=== PATIENT | male | born 1965 | race Two or more races ===

== ENCOUNTER 2018-07-09 11:45 | Inpatient (IN) | payer OTHER ==
[~2018-07-09] VITALS: Ht 172.7 cm; Wt 105.7 kg
[2018-07-09] MEDS ORDERED: LOSARTAN POTASS50 MG PO (14:20)
[2018-07-09] MEDS ORDERED: LIPITOR20 MG PO (14:20)
[2018-07-09] MEDS ORDERED: DIOVAN160 M1 PO (14:20)
[2018-07-09] MEDS ORDERED: PRILOSEC10 MG PO (14:21)
[2018-07-09] MEDS ORDERED: COGENTIN2 MG/2 ML IM (14:21)
[2018-07-09] MEDS ORDERED: BENADRYL ALLERG25 MG PO (14:22)
[2018-07-09] MEDS ORDERED: DIVALPROEX SOD500 M1 PO (14:22)
[2018-07-09] MEDS ORDERED: RISPERDAL3 MG PO (14:22)
[2018-07-09] MEDS ORDERED: XANAX1 MG PO (14:23)
[2018-07-17] MEDS ORDERED: XARELTO10 MG PO (09:12)
[2018-07-17] MEDS ORDERED: BACTRIM DS TAB1 EACH PO (09:12)
[2018-07-17] MEDS ORDERED: INTEGRA PLUS C1 EACH PO (09:12)
[2018-07-17] MEDS ORDERED: OXYC1TAB9 PO (09:12)
== END 2018-07-17 18:19 | DRG 470 ==
LOC: SURH 07-13 06:15 → O/R 07-13 06:15 → SURH 07-13 11:45
PROVIDERS: ADMIT Orthopaedic Surgery Sports Medicine
PROC: 0SRC0J9 Replacement of Right Knee Joint with Synthetic Substitute, Cemented, Open Approach (ICD-10-PCS; principal; 2018-07-13 12:00)
PROC: 30233N1 Transfusion of Nonautologous Red Blood Cells into Peripheral Vein, Percutaneous Approach (ICD-10-PCS; 2018-07-16)
DX: M17.11 Unilateral primary osteoarthritis, right knee (principal); I10 Essential (primary) hypertension; E78.5 Hyperlipidemia, unspecified; F41.9 Anxiety disorder, unspecified; K21.9 Gastro-esophageal reflux disease without esophagitis; E66.01 Morbid (severe) obesity due to excess calories; D64.89 Other specified anemias

== ENCOUNTER 2022-09-16 15:53 | Inpatient (IN) | payer OTHER ==
[~2022-09-16] VITALS: Ht 172.7 cm; Wt 95.3 kg
[~2022-09-16 15:53] MED LIST: BACTRIM DS TAB1 EACH PO; BENADRYL ALLERG25 MG PO; COGENTIN2 MG/2 ML IM; DIOVAN160 M1 PO; DIVALPROEX SOD500 M1 PO; INTEGRA PLUS C1 EACH PO; LIPITOR20 MG PO; LOSARTAN POTASS50 MG PO; OXYC1TAB9 PO; PRILOSEC10 MG PO; RISPERDAL3 MG PO; XANAX1 MG PO; XARELTO10 MG PO
[2022-09-17] MEDS ORDERED: LOSARTAN-HCTZ1 EAC1 PO (11:28)
[2022-09-17] MEDS ORDERED: DEPAKOT PO (11:29)
[2022-09-17] MEDS ORDERED: DEPAKO PO (11:29)
[2022-09-17] MEDS ORDERED: BENADR PO (11:30)
[2022-09-17] MEDS ORDERED: PRILOSEC OTC20 MG PO (11:30)
[2022-09-17] MEDS ORDERED: XANAX1 MG PO (11:30)
[2022-09-23] MEDS ORDERED: QUETIAPINE FUM100 MG (08:15)
[2022-09-23] MEDS ORDERED: RESTORIL30 MG (08:15)
[2022-09-23] MEDS ORDERED: LEVOTHYROXINE50 MCG (08:15)
[2022-09-23] MEDS ORDERED: DIVALPROEX SOD500 MG (08:15)
[2022-09-23] MEDS ORDERED: HYDROCHLOROTHIA25 MG (08:16)
[2022-09-23] MEDS ORDERED: LOSARTAN POTASS50 MG (08:16)
[2022-09-23] MEDS ORDERED: PANTOPRAZOLE SO40 MG (08:16)
[2022-09-26] MEDS ORDERED: BACTRIM DS TAB1 EACH PO (08:14)
[2022-09-26] MEDS ORDERED: INTEGRA PLUS C1 EACH PO (08:14)
[2022-09-26] MEDS ORDERED: OXYC1TAB9 PO (08:14)
[2022-09-26] MEDS ORDERED: XARELTO10 MG PO (08:14)
== END 2022-09-26 12:45 | DRG 470 ==
LOC: SURH 09-23 05:28 → O/R 09-23 05:28 → SURG 09-23 07:15 → SURH 09-23 13:29
PROVIDERS: ADMIT Orthopaedic Surgery Sports Medicine; ATTEND Orthopaedic Surgery Sports Medicine
PROC: 3E0F7SF Introduction of Other Gas into Respiratory Tract, Via Natural or Artificial Opening (ICD-10-PCS; 2022-09-23)
PROC: 0SRD0J9 Replacement of Left Knee Joint with Synthetic Substitute, Cemented, Open Approach (ICD-10-PCS; principal; 2022-09-23 10:15)
PROC: 4A12X4Z Monitoring of Cardiac Electrical Activity, External Approach (ICD-10-PCS; 2022-09-25)
PROC: 30233N1 Transfusion of Nonautologous Red Blood Cells into Peripheral Vein, Percutaneous Approach (ICD-10-PCS; 2022-09-25)
DX: M17.12 Unilateral primary osteoarthritis, left knee (principal); D64.89 Other specified anemias; R00.0 Tachycardia, unspecified; I10 Essential (primary) hypertension